=== PATIENT | female | born 1990 | race African-American/Black ===

== ENCOUNTER 2020-07-30 10:20 | Inpatient (IN) | payer BC, SELFPAY ==
[2020-07-30] VITALS (143 sets, daily range): BP systolic 89–176; BP diastolic 35–129; PULSE 37–300; TEMP 36.6–37.1; O2SAT 84–100; BMI 25.2
[2020-07-30] MEDS: LACTATED RINGERS 1,000 ML 125 ML IV CONT ×3 (12:09→20:06)
[2020-07-30] MEDS: AMPICILLIN 2 GM/NS 100 ML 2 GM/100 ML BAG IVPB (12:10)
--- NOTE | 2020-07-30 12:15 | PM.IMHP ---
H&P: HPI History of Present Illness Date/Time: 07/30/20 12:15 Chief complaint: leaking fluid Narrative: Miguel Alfaro is a 30 year old female with no care here at 37 wks with SROM and contractions. [facility] and went to ER at 25 3/7 wks per u/s done that day giving EDC of 08/14/20. States no know problems with . PMFSH Past Medical History Medical History (Updated 07/30/20 @ 12:20 by Siri Byrne MD) (normal spontaneous vaginal delivery) x 1 daughter is 6 yo no complications with that or delivery Family History Family History (Updated 07/30/20 @ 12:18 by Siri Byrne MD) Mother Congenital hearing loss states degenerative that began at Other Diabetes mellitus Hypertension Social History Social History (Updated 07/30/20 @ 12:18 by Siri Byrne MD) Substance use type: marijuana and sedatives Meds Home Medications and Allergies Allergies Allergy/AdvReac Type Severity Reaction Status Date / Time procaine Allergy Swelling Verified 07/30/20 11:22 of Lip/Tongue/Throat Vital Signs Vital Signs - 24 hr 07/30/20 10:46 07/30/20 11:00 07/30/20 11:15 Pulse Rate 90 82 88 Blood Pressure 129/81 128/82 128/79 07/30/20 11:30 07/30/20 11:45 07/30/20 12:00 Pulse Rate 86 100 92 Blood Pressure 128/75 137/96 H 133/89 Exam Const: General: cooperative, healthy appearing, no acute distress and alert Nutritional Appearance: average body habitus GI: Other: FHTs reactive : Speculum Exam - Cervix: Cervical os open (1-2 cm per RN; grossly ruptured) Assessment and Plan Assessment and plan (1) 37 or more weeks gestation of : Status: Acute (2) No care in current : Code(s): O09.30 - Supervision of with insufficient care, unspecified trimester Status: Acute Assessment and Plan: Ordered labs (3) SROM (spontaneous rupture of membranes): Status: Acute Assessment and Plan: expectant mgmt. If not active labor at 6 hours, plan to augment.
[2020-07-30 12:21] LABS: Basophils Absolute Auto 0.1 K/mm3 (0.0-0.1); Basophils Percent Auto 0.5 % (0.2-1.2); Eosinophils Absolute Auto 0.1 K/mm3 (0-0.3); Eosinophils Percent Auto 0.5 % (0-4.4); Hematocrit 26.6 % (37.0-47.0); Hemoglobin 8.7 g/dL (12.0-15.0); Immature Granulocyte Absolute 0.24 K/mm3 (0.00-0.031); Immature Granulocyte Percent A 2.3 % (0-0.5); Lymphocytes Absolute Auto 2.04 K/mm3 (0.9-3.2); Lymphocytes Percent Auto 19.4 % (18.3-44.2); Mean Corpuscular HGB Conc 32.7 g/dl (32-36); Mean Corpuscular Hemoglobin 29.9 pg (26-34); Mean Corpuscular Volume 91.4 fl (80-100); Mean Platelet Volume 11.2 fl (7.4-10.4); Monocytes Absolute Auto 0.9 K/mm3 (0.1-0.6); Monocytes Percent Auto 8.4 % (2.6-8.5); Neutrophils Absolute Auto 7.2 K/mm3 (1.3-6.7); Neutrophils Percent Auto 68.9 % (45.5-73.1); Platelet Count Result 212 k/mm3 (150-375); Red Blood Count 2.91 M/mm3 (4.2-5.4); Red Cell Distribution Width 13.3 % (11.5-14.5); White Blood Count 10.5 K/mm3 (4.5-10.0)
[2020-07-30 12:44] LABS: Amphetamine Screen Urine Negative (Negative); Barbiturate Screen Urine Negative (Negative); Benzodiazepines Screen Urine Negative (Negative); Cannabinoid Screen Urine Positive (Negative); Cocaine Screen Urine Negative (Negative); Methadone Screen Urine Negative (Negative); Opiate Screen Urine Negative (Negative); Phencyclidine Screen Urine Negative (Negative)
--- NOTE | 2020-07-30 12:55 | LDADM ---
This patient, Miguel Alfaro, was admitted to Labor/Delivery/Recovery 106 on 07/30/20 at 10:21. Plans for labor, pain management and were discussed with patient. Patient/family oriented to hospital policies and general routines including ID bracelet, bed and alarms, visiting hours, pain management, procedures, bathroom and other care routines, personal items, smoking policy, room service/diet and guest tray routines, infant security routines, call light, and visiting hours. Patient/Family are encouraged to report perceived risks to care and to ask questions if they do not understand what they are told or what they should do. See OBIX for further documentation.
[2020-07-30 13:14] LABS: HIV 1/2 Ab P24 Ag Result Negative (Negative)
[2020-07-30 13:22] LABS: Hepatitis B Surface Antigen Negative (Negative); Rubella IgG Antibody 8.4 IU/ML
[2020-07-30] MEDS: AMPICILLIN 1 GM/NS 50 ML 1 GM/50 ML BAG IVPB ×2 (15:57→20:04)
[2020-07-30] MEDS: OXYTOCIN 30 UNITS/NS 500 ML 30 UNITS/500 ML BAG IV CONT (15:57)
--- NOTE | 2020-07-30 17:19 | WPDANESEPP ---
Anes - Eval Pre Procedure Procedure: labor epidural Date/Time: 07/30/20 17:19 Surgeon: tasha Pre Op Diagnosis: leaking fluid Patient Data Age: 30 Gender: F Height: 1.56 m Weight: 61.6 kg Last Vital Signs Temp 37.1 C 07/30/20 10:45 Pulse 89 07/30/20 17:00 BP 133/83 07/30/20 17:00 Allergies Allergy/AdvReac Type Severity Reaction Status Date / Time procaine Allergy Swelling Verified 07/30/20 11:22 of Lip/Tongue/Throat Laboratory Tests 07/30/20 07/30/20 07/30/20 11:58 11:58 11:58 WBC 10.5 K/mm3 H K/mm3 (4.5-10.0) RBC 2.91 M/mm3 L M/mm3 (4.2-5.4) Hgb 8.7 g/dL L g/dL (12.0-15.0) Hct 26.6 % L % (37.0-47.0) MCV 91.4 fl fl (80-100) MCH 29.9 pg pg (26-34) MCHC 32.7 g/dl g/dl (32-36) RDW 13.3 % % (11.5-14.5) Plt Count 212 k/mm3 k/mm3 (150-375) MPV 11.2 fl H fl (7.4-10.4) Immature Gran % (Auto) 2.3 % H % (0-0.5) Neut % (Auto) 68.9 % % (45.5-73.1) Lymph % (Auto) 19.4 % % (18.3-44.2) [place] % (Auto) 8.4 % % (2.6-8.5) Eos % (Auto) 0.5 % % (0-4.4) Baso % (Auto) 0.5 % % (0.2-1.2) Lymph # (Auto) 2.04 K/mm3 K/mm3 (0.9-3.2) [place] # (Auto) 0.9 K/mm3 H K/mm3 (0.1-0.6) Eos # (Auto) 0.1 K/mm3 K/mm3 (0-0.3) Baso # (Auto) 0.1 K/mm3 K/mm3 (0.0-0.1) Abs Immat Gran (auto) 0.24 K/mm3 H K/mm3 (0.00-0.031) Absolute Neuts (auto) 7.2 K/mm3 H K/mm3 (1.3-6.7) Absolute Nucleated RBC 0.0 K/mm3 K/mm3 (0.0-0.012) Nucleated RBC % 0.0 % % (0.0-0.2) Urine Opiates Screen Urine Methadone Screen Ur Barbiturates Screen Ur Phencyclidine Scrn Ur Amphetamine Screen U Benzodiazepines Scrn Urine Cocaine Screen U Cannabinoids Screen RPR Hep Bs Antigen Negative (Negative) HIV 1&2 Ab/P24 Ag 4thGn Negative (Negative) Rubella IgG Antibody 8.4 IU/ML L IU/ML (10 - ) Blood Type Antibody Screen 07/30/20 07/30/20 07/30/20 11:58 11:58 11:59 WBC RBC Hgb Hct MCV MCH MCHC RDW Plt Count MPV Immature Gran % (Auto) Neut % (Auto) Lymph % (Auto) [place] % (Auto) Eos % (Auto) Baso % (Auto) Lymph # (Auto) [place] # (Auto) Eos # (Auto) Baso # (Auto) Abs Immat Gran (auto) Absolute Neuts (auto) Absolute Nucleated RBC Nucleated RBC % Urine Opiates Screen Negative (Negative) Urine Methadone Screen Negative (Negative) Ur Barbiturates Screen Negative (Negative) Ur Phencyclidine Scrn Negative (Negative) Ur Amphetamine Screen Negative (Negative) U Benzodiazepines Scrn Negative (Negative) Urine Cocaine Screen Negative (Negative) U Cannabinoids Screen Positive A (Negative) RPR Pending Hep Bs Antigen HIV 1&2 Ab/P24 Ag 4thGn Rubella IgG Antibody Blood Type O Positive Antibody Screen Negative Patient hx anesthesia problems: none Family hx anesthesia problems: none PMFSH Past Medical History Medical History (Updated 07/30/20 @ 12:20 by Siri Byrne MD) (normal spontaneous vaginal delivery) x 1 daughter is 6 yo no complications with that or delivery Family History Family History (Updated 07/30/20 @ 12:18 by Siri Byrne MD) Mother Congenital hearing loss states degenerative that began at Other Alexandra
--- NOTE | 2020-07-30 21:49 | PM.OBPRVD ---
OB - Delivery Note Procedure Delivery date: 07/30/20 Procedure: events: No Care Intrapartal events: None Induction method: none Delivery augmentation: pitocin Delivery monitor: external FHT and external uterine Route of delivery: Laceration description: None Specimen: Yes (placenta) Estimated blood loss (mL): 100 Anesthesia type: Epidural Disposition: floor [place] Baby Date of : 07/30/20 Weeks of gestation at delivery: 37 Infant gender: Male Weight (pounds): 5 Weight (ounces): 10 presentation: vertex Placenta delivery description: Spontaneous cord vessel description: 3 Vessels score one minute: 9 score five minutes: 9
--- NOTE | 2020-07-30 21:50 | PM.OBDSVD ---
DS: Admitting Diagnosis Admitting Diagnosis Admitting Diagnosis: SROM in labor at 37 3/7 wks No care DS: Discharge Diagnosis Discharge Diagnosis (1) (normal spontaneous vaginal delivery): Code(s): O80 - Encounter for full-term uncomplicated delivery Status: Acute (2) SROM (spontaneous rupture of membranes): Status: Acute (3) 37 or more weeks gestation of : Status: Acute (4) No care in current : Code(s): O09.30 - Supervision of with insufficient care, unspecified trimester Status: Acute OB - DS: Summary OB Procedures : Ultrasound OB Procedures Intrapartum: Spontaneous Vag Delivery OB Procedures: : None Peripartum Data Delivery Method: Natural Vaginal Laceration description: None complications: none Status at Discharge Functional status at discharge: independent ambulation Overall status at discharge: patient is progressing back to baseline Time Spent with Patient Time attestation: Total time spent providing and/or coordinating discharge services: DS: Data Data Completed and Pending Labs on day of discharge: Labs from last 24 hours 07/30/20 07/30/20 07/30/20 11:59 11:58 11:58 WBC RBC Hgb Hct MCV MCH MCHC RDW Plt Count MPV Immature Gran % (Auto) Neut % (Auto) Lymph % (Auto) [place] % (Auto) Eos % (Auto) Baso % (Auto) Lymph # (Auto) [place] # (Auto) Eos # (Auto) Baso # (Auto) Abs Immat Gran (auto) Absolute Neuts (auto) Absolute Nucleated RBC Nucleated RBC % Urine Opiates Screen Negative Urine Methadone Screen Negative Ur Barbiturates Screen Negative Ur Phencyclidine Scrn Negative Ur Amphetamine Screen Negative U Benzodiazepines Scrn Negative Urine Cocaine Screen Negative U Cannabinoids Screen Positive A RPR Pending Hep Bs Antigen HIV 1&2 Ab/P24 Ag 4thGn Rubella IgG Antibody Blood Type O Positive Antibody Screen Negative 07/30/20 07/30/20 07/30/20 11:58 11:58 11:58 WBC 10.5 H RBC 2.91 L Hgb 8.7 L Hct 26.6 L MCV 91.4 MCH 29.9 MCHC 32.7 RDW 13.3 Plt Count 212 MPV 11.2 H Immature Gran % (Auto) 2.3 H Neut % (Auto) 68.9 Lymph % (Auto) 19.4 Bryan % (Auto) 8.4 Eos % (Auto) 0.5 Baso % (Auto) 0.5 Lymph # (Auto) 2.04 Bryan # (Auto) 0.9 H Eos # (Auto) 0.1 Baso # (Auto) 0.1 Abs Immat Gran (auto) 0.24 H Absolute Neuts (auto) 7.2 H Absolute Nucleated RBC 0.0 Nucleated RBC % 0.0 Urine Opiates Screen Urine Methadone Screen Ur Barbiturates Screen Ur Phencyclidine Scrn Ur Amphetamine Screen U Benzodiazepines Scrn Urine Cocaine Screen U Cannabinoids Screen RPR Hep Bs Antigen Negative HIV 1&2 Ab/P24 Ag 4thGn Negative Rubella IgG Antibody 8.4 L Blood Type Antibody Screen Discharge Plan Discharge Attending physician on discharge: Siri Byrne Discharging Clinician: Siri Byrne Anticipated Discharge Date/Time: 08/01/20 09:51 Patient Disposition: Home, Self-Care Activity: may shower and pelvic rest Diet: regular Patient Instructions: Antibiotic Form Stand Alone Forms: General Discharge Information Follow-up/Referrals: Siri Byrne MD [Physician] - 6 Weeks Discharge Medications: New Slynd 4 mg (28) tablet 4 mg PO DAILY 24 Days Qty: 24 RF: 3 No Action No Home Medications RF: 0 Date of admission: 07/30/20 10:21 Primary Care Provider: PHYSICIAN,OPERATIONS SUPERINTENDENT Admitting Provider: Siri Byrne Attending physician on admission: Siri Byrne Condition: Stable
[2020-07-30] MEDS: OXYTOCIN 30 UNITS/NS 500 ML 30 UNITS/500 ML BAG 125 UNITS IV CONT (22:15)
[2020-07-31 00:25] VITALS: BP 123/73; PULSE 83; RESP 18; TEMP 37.4; O2SAT 100
--- NOTE | 2020-07-31 01:24 | OBPPTRN ---
Patient transferred to post room #282 in wheelchair. Support person present. Oriented to unit, room, information board, rooming in, admission packet and security measures. Patient verbalizes understanding.
[2020-07-31 07:15] VITALS: BP 121/57; PULSE 82; RESP 20; TEMP 36.4
--- NOTE | 2020-07-31 07:35 | PM.OBPNVD ---
OB - PN: Subj Subjective Date/time seen: 07/31/20 07:35 Patient comments: no complaints and pain well controlled baby status: doing well and nursing well OB - PN: Obj Data Labs CBC & Chem 7: 07/30/20 11:58 Labs: Laboratory Results - last 24 hr 07/30/20 07/30/20 07/30/20 11:58 11:58 11:58 WBC 10.5 H RBC 2.91 L Hgb 8.7 L Hct 26.6 L MCV 91.4 MCH 29.9 MCHC 32.7 RDW 13.3 Plt Count 212 MPV 11.2 H Immature Gran % (Auto) 2.3 H Neut % (Auto) 68.9 Lymph % (Auto) 19.4 [place] % (Auto) 8.4 Eos % (Auto) 0.5 Baso % (Auto) 0.5 Lymph # (Auto) 2.04 [place] # (Auto) 0.9 H Eos # (Auto) 0.1 Baso # (Auto) 0.1 Abs Immat Gran (auto) 0.24 H Absolute Neuts (auto) 7.2 H Absolute Nucleated RBC 0.0 Nucleated RBC % 0.0 Urine Opiates Screen Urine Methadone Screen Ur Barbiturates Screen Ur Phencyclidine Scrn Ur Amphetamine Screen U Benzodiazepines Scrn Urine Cocaine Screen U Cannabinoids Screen Hep Bs Antigen Negative HIV 1&2 Ab/P24 Ag 4thGn Negative Rubella IgG Antibody 8.4 L Blood Type Antibody Screen 07/30/20 07/30/20 11:58 11:59 WBC RBC Hgb Hct MCV MCH MCHC RDW Plt Count MPV Immature Gran % (Auto) Neut % (Auto) Lymph % (Auto) [place] % (Auto) Eos % (Auto) Baso % (Auto) Lymph # (Auto) [place] # (Auto) Eos # (Auto) Baso # (Auto) Abs Immat Gran (auto) Absolute Neuts (auto) Absolute Nucleated RBC Nucleated RBC % Urine Opiates Screen Negative Urine Methadone Screen Negative Ur Barbiturates Screen Negative Ur Phencyclidine Scrn Negative Ur Amphetamine Screen Negative U Benzodiazepines Scrn Negative Urine Cocaine Screen Negative U Cannabinoids Screen Positive A Hep Bs Antigen HIV 1&2 Ab/P24 Ag 4thGn Rubella IgG Antibody Blood Type O Positive Antibody Screen Negative OB - PN A/P Plan day: 1 Plan: routine care Time Spent With Patient Time: Total time spent is greater than 50% in coordination of care (as documented) at patient's floor/unit and/or counseling patient: Exam : Bimanual exam- vagina & uterus: other (Uterus firm, nt @U)
[2020-07-31 07:39] LABS: Hematocrit 25.6 % (37.0-47.0); Hemoglobin 8.4 g/dL (12.0-15.0)
[2020-07-31] MEDS: DOCUSATE SODIUM 100 MG CAPSULE PO ×2 (09:37→17:08)
[2020-07-31] MEDS: MULTIVIT/MIN/PREN/FOL AC/IRON TABLET 1 TAB PO (09:37)
[2020-07-31] MEDS: POLYSACCHARIDE IRON COMPLEX 150 MG CAPSULE PO ×2 (09:37→17:08)
--- NOTE | 2020-07-31 10:19 | WPDANLDPN2 ---
Anes-Prog Note L&D Date/Time: 07/31/20 10:19 Comfortable throughout: labor and delivery Neuraxial method: epidural Epidural/Spinal procedure site: clean & non-tender Neuro status: Neuro function grossly intact. Cardiovascular status: normal Respiratory status: normal Airway patency: baseline Mental status: baseline Post-Op hydration status: normal Vital Signs: Last Vital Signs Temp 36.4 C 07/31/20 07:15 Pulse 82 07/31/20 07:15 Resp 20 07/31/20 07:15 BP 121/57 L 07/31/20 07:15 Pulse Ox 100 07/31/20 00:25 Pain score (VAS): 0 I/O: Intake & Output 07/30/20 07/31/20 07/31/20 23:59 07:59 15:59 Intake Total 2600 Output Total 195 Balance 2405 Post-procedural complaints: none Patient feedback: Patient satisfied with anesthetic care.
--- NOTE | 2020-07-31 13:48 | PCCCNOTE ---
Addendum entered by KLEBER Horton 07/31/20 14:32: DCFS report filed reference ID, [id number], awaiting determination from DCFS. Original Note: Care Coordination Consult: Met with pt. today who reports this is her second child. FOB is involved however is working and not able to come to the hospital to be her support person. Pt. lives at home with her mother. Pt. has family support. Pt. has all necessary supplies including a crib, car seat, clothing, bottles etc. Per pt. she plans to breast feed and bottle feed. resources provided to pt. including WIC and Health Family services. At this time pt. does not plan to utilize services. Pt. admits to marijuana use during , states that she uses recreationally. Pt. is aware she tested positive for marijuana and that baby's meconium was tested with pending results at this time. Pt. denies any DCFS history regarding herself. Pt. is aware that DCFS was notified and CC is awaiting whether a report will be generated.
[2020-07-31] MEDS: IBUPROFEN 600 MG TABLET PO (17:11)
[2020-07-31 18:32] VITALS: BP 123/75; PULSE 89; RESP 16; TEMP 36.5; O2SAT 98
--- NOTE | 2020-08-01 00:20 | PC.NURSE ---
07/31/2020 at 2200. I discussed with Fammonica the need for her to have a Rubella vaccine before being discharged home. Miguel's response, Adela, I've told you I can't stand needles!!! I continued to discuss the importance for the next to be vaccinated against Rubella for the baby to be protected against Rubella. Miguel again replied, But Adela I hate needles! I gave Miguel an article written by the CDC with the possible effects of having Rubella and becoming . I handed the printed article to Fammonica and told her that her baby could be affected even BEFORE she even knows she is as early at 12 weeks. I reinforced to Miguel the HIGH IMPORTANCE for her to talk to Dr. Byrne regarding the vaccine BEFORE DISCHARGE.
--- NOTE | 2020-08-01 04:17 | PC.NURSE ---
07/31/2020 at 2200. Patient viewed the discharge video Mother & Baby Care, The First Two Weeks . Patient was given the opportunity and encouraged to ask questions. Patient verbalized understanding of information shared and has been given the mother/baby guide for home reference.
[2020-08-01 08:21] LABS: Rapid Plasma Reagin Non-Reactive (NonReactive)
[2020-08-01 08:30] VITALS: BP 135/86; PULSE 70; RESP 18; TEMP 36.7
--- NOTE | 2020-08-01 09:57 | PM.OBPNVD ---
OB - PN: Subj Subjective Date/time seen: 08/01/20 09:57 Patient comments: no complaints and pain well controlled baby status: doing well and nursing well OB - PN: Obj Data Labs CBC & Chem 7: 07/31/20 07:27 Labs: Laboratory Results - last 24 hr 07/30/20 11:58 RPR Non-reactive OB - PN A/P Plan day: 2 Plan: routine care, discharge home, follow up 6 weeks and other (plans OC's for control) Time Spent With Patient Time: Total time spent is greater than 50% in coordination of care (as documented) at patient's floor/unit and/or counseling patient: Exam : Bimanual exam- vagina & uterus: other (Uterus firm, nt @U)
--- NOTE | 2020-08-01 10:05 | PC.NURSE ---
Consult with pt., mother reports infant is eagerly . Mother breastfed first child without issue, which was term . Discussed and the 37 week , establishing may have its own unique set of circumstances due to their immaturity. infants may be less alert, have less stamina and may have issues with latch, suck and swallow. With the possible inability to have a vigorous suck swallow, infants may not be adequately stimulating mother and/or able to have adequate milk transfer. Pumping should be considered for additional stimulation and to offer EBM as part of supplement if needed. This infant is at 9% weight loss. Suggested to wake to feed by three hours and to stimulate while feeding to keep awake and nursing effectively for increased intake and to assist with maintaining deep latch. Offered to assist with next feeding before discharge. Mother denies the need. Mother verbalizes she is able to independently latch infant with appropriate positioning/alignment. She denies any nipple discomfort, is feeding as required and waking infant to feed if needed. has had at least 8 feedings in the past 24 hours, and is currently meeting outcomes for weight, output, jaundice and feeding frequencies. Mother states she feels confident to continue effective at home. Mother reports she is a [facility] client and contact them for assist if needed. Reviewed transition to breast milk, signs of adequate intake, and engorgement/relief. Instructed to call ICP if intake/output less than required. Reviewed regular medications mother is taking. Information provided per Lucretia. Reviewed community resources on the [facility] and in the Mom/Baby guide. Information on outpatient services provided. Mother has no further questions at this time.
== END 2020-08-01 11:28 | disposition home or self-care (01) | DRG 560 ==
LOC: ANHLDR 21:52 → ANHOB2 07-31 00:28
PROVIDERS: Admitting Provider Obstetrics & Gynecology Gynecology; Visit Provider Obstetrics & Gynecology Gynecology
DX: O80 Encounter for full-term uncomplicated delivery (principal); Z3A.37 37 weeks gestation of pregnancy; Z37.0 Single live birth
CPT/HCPCS: 36415; 80307; 84112; 85014; 85018; 85025; 86592; 86703; 86762; 86850; 86900; 86901; 87340; 88307; A9270; G0432; J0290; J2590; J2795; J7120